=== PATIENT | male | born 1960 | race Caucasian/White ===

== ENCOUNTER 2023-10-17 12:42 | Emergency (ER) | payer OTHER ==
[~2023-10-17] VITALS: Ht 195.6 cm; Wt 122.5 kg
[2023-10-17] MEDS ORDERED: diphenhydrAMINE 50 MG/1 ML VIAL IV ONE (12:45)
[2023-10-17] MEDS ORDERED: EPINEPHRINE-PF 1:1000 1 MG/ML AMPUL/VIAL ONE (12:45)
[2023-10-17] MEDS ORDERED: IV NS 1000 ML 1,000 ML IV ONE (12:45)
[2023-10-17] MEDS ORDERED: FAMOTIDINE. 20 MG/2 ML VIAL IV ONE ×2 (12:45→12:50)
[2023-10-17] MEDS ORDERED: EPINEPHRINE 1 MG/1 ML 30 ML VIAL SQ ONE (12:45)
[2023-10-17] MEDS ORDERED: diphenhydrAMINE 50 MG/1 ML VIAL ONE (12:50)
[2023-10-17] MEDS ORDERED: ATOR80TA PO (12:57)
[2023-10-17] MEDS ORDERED: methylPREDNISolone SOD SUCC 125 MG/2 ML VIAL IV ONE (13:00)
[2023-10-17] MEDS ORDERED: methylPREDNISolone SOD SUCC 125 MG/2 ML VIAL ONE (13:04)
[2023-10-17 13:15] LABS: BASOPHILS % (AUTO) 0.1 % (0.0-2.0); EOSINOPHILS # (AUTO) 0.3 K/uL (0.0-0.7); EOSINOPHILS % (AUTO) 2.9 % (0.0-7.0); HEMATOCRIT 46.3 % (36.7-47.1); HEMOGLOBIN 15.4 g/dL (12.5-16.3); LYMPHOCYTES # (AUTO) 1.6 K/uL (0.8-4.8); LYMPHOCYTES % (AUTO) 18.5 % (20.5-51.5); MEAN CORPUSCULAR HEMOGLOBIN 31.6 uug (23.8-33.4); MEAN CORPUSCULAR HGB CONC 33 g/dL (32.5-36.3); MEAN CORPUSCULAR VOLUME 95.1 fL (73.0-96.2); MONOCYTES # (AUTO) 0.4 K/uL (0.1-1.30); NEUTROPHILS # (AUTO) 6.6 K/uL (1.8-8.9); NEUTROPHILS % (AUTO) 74.5 % (38.5-71.5); PLATELET COUNT (AUTO) 200 K/uL (152-348); RED BLOOD CELL COUNT(AUTO) 4.87 MIL/uL (4.06-5.63); RED CELL DISTRIBUTION WIDTH 13.3 % (12.1-16.2); WHITE BLOOD COUNT (AUTO) 8.8 K/uL (3.6-10.2)
[2023-10-17 13:29] LABS: DIFFERENTIAL COMMENT 1
[2023-10-17] MEDS ORDERED: FAMO10TA41 PO (13:44)
[2023-10-17] MEDS ORDERED: DIPH25CA83 PO (13:44)
[2023-10-17] MEDS ORDERED: EPIN0.3P3 IM (13:44)
[2023-10-17 13:46] LABS: CALCIUM 8.9 mg/dL (8.5-10.1); CREATININE 1.4 mg/dL (0.6-1.3); POTASSIUM 3.2 mmol/L (3.5-5.1)
[2023-10-17] MEDS ORDERED: POTASSIUM BICARBONATE/CIT AC 25 MEQ TABLET.EFF ONE (14:20)
[2023-10-17] MEDS ORDERED: POTASSIUM BICARBONATE/CIT AC 25 MEQ TABLET.EFF PO ONE (14:30)
[2023-10-17 15:15] VITALS: BP 146/82; TEMP 98.2; O2SAT 98
== END 2023-10-17 15:16 | disposition home or self-care (01) ==
LOC: ER 12:48
DX: T63.891A Toxic effect of contact with other venomous animals, accidental (unintentional), initial encounter (principal); T78.2XXA Anaphylactic shock, unspecified, initial encounter; R55 Syncope and collapse; E87.6 Hypokalemia; Z79.899 Other long term (current) drug therapy
CPT/HCPCS: 99284; 96374; 96375; 96361; 80048; 85025; 84484; 36415; 93005; 96372; J1200; J0171; J3490; J2930; J7040; A4606; A4663